=== PATIENT | female | born 1955 | race Caucasian/White ===

== ENCOUNTER → 2017-08-15 | Outpatient (CLI) | payer OTHER ==
[~2017-08-15] MED LIST: CLIN300C99 PO; HYDR-2966 PO; LEVO88TA45 PO; LEVOTHYROXINE; MULT-885 PO; OMEG300C PO; PROGESTERONE
--- NOTE | 2017-08-15 15:38 | RADIOLOGY IMAGING REPORT ---
FACILITY: [facility] - [place] PATIENT NAME: Claudio Benitez : 1955 MR: [id number] V: [id number] EXAM DATE: ORDERING PHYSICIAN: LAMBERTO MENON TECHNOLOGIST: [place] [facility] [place]audio Benite[place] : 1955 Visit/Account:[id number] Date of Sevice: 08/15/2017 CHEST PA AND LAT HISTORY: Cough. COMPARISON: None FINDINGS: Cardiomediastinal contours: The heart size is normal. Lungs and pleura: There is no finding of an infiltrate, lymphadenopathy or pleural effusion. Bones/soft tissues: There are no findings of a fracture. IMPRESSION: Normal chest x-ray without findings of acute disease. Report Dictated By: Luis A Saleem MD at 08/15/2017 3:34 PM Report E-Signed By: Luis A Saleem MD at 08/15/2017 3:34 PM WSN:[email or web address]
== END ==
LOC: RAD 15:05
PROVIDERS: ATTEND Family Medicine
DX: R05 Cough (principal)
CPT/HCPCS: 71046